=== PATIENT | female | born 1935 | race Caucasian/White ===

== ENCOUNTER 2023-03-22 17:20 | Inpatient (IN) | payer MEDICARE, OTHER, SELFPAY ==
[2023-03-22] VITALS (11 sets, daily range): BP systolic 94–163; BP diastolic 51–85; BMI 26.7; BMI 26.2
[2023-03-22 12:38] LABS: % Basophils 0.4 % (0-2); % Immature Granulocytes 0.6 % (0-0.5); % Lymphocytes 44.3 % (20.5-51.1); % Monocytes 8.7 % (1.7-9.3); Absolute Eosinophils 0.1 10^3/uL (0-0.7); Absolute Immature Granulocytes 0.1 10^3/uL (0-0.05); Absolute Lymphocytes 3.6 10^3/uL (1.2-3.4); Absolute Monocytes 0.7 10^3/uL (0.1-0.6); Absolute Neutrophils 3.6 10^3/uL (1.4-6.5); Hematocrit 38.1 % (37.0-47.0); Hemoglobin 12.6 g/dL (12.0-16.0); Mean Corp Hgb Conc. 33.1 g/dL (33.0-37.0); Mean Corpuscular Hgb 29.7 pg (27.0-31.0); Mean Corpuscular Volume 89.9 fL (81.0-99.0); Mean Platelet Volume 10.8 fL (7.4-10.4); Nucleated Red Blood Cells % 0 %; Platelet Count 252 10^3/uL (130-400); Red Blood Cell Count 4.24 10^6/uL (4.20-5.40); Red Cell Dist. Width 12.9 % (11.5-14.5)
[2023-03-22 12:48] LABS: ALT (SGPT) 12 U/L (0-35); AST (SGOT) 19 U/L (14-36); Albumin 3.8 g/dl (3.5-5.0); Alkaline Phosphatase 121 U/L (38-126); Blood Urea Nitrogen 61 mg/dl (7-17); Calcium 9.9 mg/dl (8.4-10.2); Carbon Dioxide 26 mmol/L (22-30); Chloride 102 mmol/L (98-107); Estimated Creatinine Clearance 15 ml/min; Glucose 87 mg/dl (70-99); Potassium 4.9 mmol/L (3.5-5.1); Sodium 137 mmol/L (135-145); Total Bilirubin 0.7 mg/dl (0.2-1.3); Total Protein 7.2 g/dl (6.3-8.2); eGFR 19.07
--- NOTE | 2023-03-22 12:56 | ED.GENMED ---
History of Present Illness
General
Chief Complaint: Change in Mental Status
Source: patient and family
Exam Limitations: none
Time Seen by Provider: 03/22/23 12:18
Nursing documentation reviewed up to this point in time: agreed with
Travel History
Have you had any contact with someone who has COVID-19?: Unable to Answer
Do you have any symptoms of coronavirus? Fever > 100 degrees, chills, cough, shortness of breath, sore throat, loss of taste or smell, muscle aches, or headache?: Unable to Answer
History of Present Illness
History of Present Illness:
87-year-old female presents the emergency department due to difficulty walking began this morning. She has chronic hip pain. Denies any fall.
Past History
Past History
ED Past Medical History: HTN, Hypothyroidism and Other (Mild dementia, cataracts)
ED Past Surgical History: Other (Vein stripping, cataracts, left knee replacement)
Social History
Tobacco: Non-smoker
Alcohol: None
Drug: None
Personal:
Living: with family
Phy Exam
Physical Exam
Physical Exam:
Physical Exam
General: Confused, afebrile
Neck: supple. no meningeal signs. normal posterior pharynx
Heart: s1/s2 regular rate and rhythm, no murmur. equal radial
pulses.
HEENT: Pupils equal round reactive to light, EOMI
Lungs: no acute respiratory distress. clear bilaterally
Abdomen: normal bowel sounds. not tender. no CVAT
Neuro: alert and oriented to person. no focal neurological deficits cranial nerves II through XII intact
Skin: no rash
Psychiatric: well kept. interactive and cooperative
Extremities: no edema. no calf tenderness. negative homans. good distal pulses
Course
Orders/Labs/Results
Orders:
Orders
03/22/23 12:18
Electrocardiogram (*1) Urgent
Reason for Study: Fatigue / Weakness
03/22/23 12:19
EKG- Treatment ONCE
03/22/23 12:24
CMP [Comprehensive Metabolic Panel] Urgent
Complete Blood Count/With Diff Urgent
Urinalysis Reflex To Culture Urgent
Date Specimen was Collected: 03/22/23
Time Specimen was Collected: 12:19
Urine Microscopic Reflex Cult Urgent
Urine Culture Urgent
MOARLES Source: U
Specimen Description:
Date Specimen was Collected: 03/22/23
Time Specimen was Collected: 12:19
03/22/23 12:56
CT Head W/o Iv Contrast Urgent
Comment:
Reason For Exam: Difficulty walking
Lumbar Spine Complete, 4 View [CR Lumbar Spine Comp Min 4 Vw*] Urgent
Comment:
Reason For Exam: Low back pain
Pelvis, 1 or 2 Views CR [CR Pelvis - 1 Or 2 Views ] Urgent
Comment:
Reason For Exam: Difficulty walking
03/22/23 14:16
CefTRIAXone [Rocephin] 2,000 mg IV NOW STA
03/22/23 14:33
Sterile Water [Sterile Water For Injection] 20 ml .ROUTE .STK-MED ONE
03/22/23 15:17
0.9% Sodium Chloride 500 ml [Nss] 500 ml IV BOLUS
03/22/23 15:18
Acetaminophen [Tylenol] 650 mg PO NOW STA
03/22/23 16:27
COVID-19 Antigen Urgent
Source: Nasal Swab
Influenza A+B Rapid Molecular Urgent
MORALES Source: Nasal Swab
Specimen Description:
Abnormal Lab Results
03/22/23
12:24
MPV 10.8 H fL
(7.4-10.4)
Abs Immat Gran (auto) 0.1 H 10^3/uL
(0-0.05)
Absolute Lymphs (auto) 3.6 H 10^3/uL
(1.2-3.4)
Absolute Monos (auto) 0.7 H 10^3/uL
(0.1-0.6)
Immature Gran % 0.6 H %
(0-0.5)
BUN 61 H mg/dl
(7-17)
Creatinine 2.4 H mg/dL
(0.6-1.0)
Urine Ketones 1+ A
(Negative)
Urine Bilirubin 1+ A
(Negative)
Leukocyte Esterase Rfl 1+ A
(Negative)
Urine WBC (Reflex) 21-25 A /HPF
(0-5)
Urine Bacteria (Reflex) Moderate A
(Negative)
03/22/23 12:24
03/22/23 12:24
Vital Signs
Initial and Last Documented VS:
Initial Vital Signs
BP
101/60
03/22/23 12:11
Last Documented Vital Signs
Temp Pulse Resp BP Pulse Ox
97.3 F 62 13 99/63 93
03/22/23 12:13 03/22/23 15:00 03/22/23 15:00 03/22/23 15:00 03/22/23 15:00
MDM/Problems Addressed
Differential Diagnosis Includes:
CVA, acute renal failure, UTI
MDM/Problems Addressed:
87-year-old female with weakness, acute renal failure, UTI Rocephin given. IV fluids given. Admit to hospitalist
Chronic conditions affecting care: HTN and Other (Dementia)
Acute Exacerbation and/or Progression of Chronic Illness: HTN and Other (Dementia)
*EKG
Interpreted by ED Provider?: Yes
EKG Intrepretation Date: 03/22/23
EKG Intrepretation Time: 12:56
Interpretation: abnormal
Comparison EKG: changes noted
Heart Rate: 63
Rate: normal
Rhythm: sinus
[place]: left axis deviation
Interval: normal interval
QRS Pattern: right bundle branch block
Ischemia: non-specific ST changes
*Barrel Filler Interpretation
Rate: normal
Interpretation: normal
Heart Rate: 60
Rhythm: sinus
*Critical Care Note
Total Time (30-74mins, 75-104mins- exclusive of procedures): Not Applicable
Data Reviewed
Review of Other/Old Records Reveals: Labs
Source: records (Creatinine 1.3 on 03/10/2023)
Patient Management
Social determinants of health affecting care: Strong social support
Discussion with other providers: Hospitalist
Escalation/DeEscalation of care consider admission/obs:
Admit indicated
ED Attending Note
-
Portions of this chart may have been created with voice recognition software.� Occasional wrong word or��sound alike� substitutions may have occurred due to the inherent limitations of voice recognition software.
Discharge Plan
Departure
Patient Disposition: Admit
Date of Disposition: 03/22/23
Time of Disposition: 15:16
Admit to: Telemetry
Presentation/result/management discussed w/ accepting MD/DO: Hospitalist
Patient with high blood pressure during this ER visit?: No
Condition: Good
Discharge Problem:
Urinary tract infection, Acute renal failure
Prescriptions:
No Action
lisinopril 10 MG tablet
10 mg PO HS
donepezil 10 mg Tablet
10 mg PO DAILY@2099
furosemide 40 mg Tablet
40 mg PO DAILY
acetaminophen [Tylenol] 325 mg Tablet
650 mg PO Q6H MDD 3000 mg PRN (Reason: mild pain/fever>101)
acetaminophen [Tylenol Extra Strength] 500 mg Tablet
500 mg PO DAILY
levothyroxine 50 mcg Tablet
50 mcg PO DAILY@2099
loteprednol etabonate [Lotemax] 0.5 % Drops,Suspension
1 drp BOTH EYES BID@899,2099
carboxymethylcellulose sodium [Refresh Plus] 0.5 % Dropperette
1 drp BOTH EYES QID@899,,17,21
cholecalciferol (vitamin D3) 25 mcg (1,000 unit) Tablet
50 mcg PO DAILY@00
PreserVision AREDS-2 250-90-40-1 mg Capsule
1 cap PO BID@899,2099
Osteo Bi-Flex
2 tab PO DAILY@899
diclofenac sodium 1 % gel
1 applic topical QIDPRN PRN (Reason: osteoarthritis)
Referrals:
Supa Donald MD [Family Provider] -
Interventions
Interventions:
*Risk Screen - Suicide Last Done: 03/22/23 12:10
*Neglect/Abuse Screening Last Done: 03/22/23 12:10
ED- Fall Risk Assessment Last Done: 03/22/23 12:20
*ED COVID-19 Vaccine History Last Done: 03/22/23 12:20
ED- Neurological Assessment Last Done: 03/22/23 12:20
ED- Cardiac Assessment Last Done: 03/22/23 12:20
[2023-03-22 13:15] LABS: Urine Albumin Trace (Neg - Trace); Urine Bilirubin 1+ (Negative); Urine Character Clear (Clear); Urine Color Yellow; Urine Glucose Negative (Negative); Urine Ketone 1+ (Negative); Urine Leukocyte 1+ (Negative); Urine Nitrite Negative (Negative); Urine Occult Blood Negative (Negative); Urine Urobilinogen 1+ (Neg - 1+)
[2023-03-22 13:39] LABS: Urine Bacteria Moderate (Negative); Urine Red Blood Cell 0-2 /HPF (0-2); Urine White Cell 21-25 /HPF (0-5)
[2023-03-22] MEDS: ROCEPHIN 2000 MG IV (14:38)
[2023-03-22] MEDS: NSS 500 IV (15:20)
[2023-03-22] MEDS: TYLENOL 650 MG PO ×3 (15:23→22:46)
--- NOTE | 2023-03-22 16:23 | HPS.HSE ---
Addendum entered and electronically signed by Ave Rene MD 03/23/23 07:56:
I saw and examined the patient.
The DISABILITY BENEFITS SPECIALIST or PA's note was reviewed and I agree with the note.
Comment: 87 y/o F hx of HTN, hypothyroidism, CKD 4, dementia presenting to ER with ambulatory dysfunction and chronic hip pain. She denies any other complaints. In ER, patient was found to have acute UTI And STEFFANIE. started on IVF and IV Abx and
admitted to the hospital.
GENERAL: The patient appeared to be in no distress. Mood and affect was pleasant. Saturation was poor.
HEENT: Pupils equal, round, reactive to light. Extraocular movements were intact. Sclerae anicteric. Ears and nose were intact. Hearing was normal. Oropharynx was clear, but dry. Neck was supple. Trachea without
thyromegaly.
HEART: Regular without rubs.
EXTREMITIES: Lower extremities were with 1+ edema.
LUNGS:� Clear to auscultation bilaterally with normal excursion.�
ABDOMEN:� Soft, nontender, with normoactive bowel sounds. No hepatomegaly.
SKIN: Without rash and normal turgor.
Assessment:
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
- hold nephrotoxins
- bladder scans/SC protocol
- IVF as patient appears dry
- renal following
UTI
- continue empiric Rocephin, pending cultures
- CT without obstructive uropathy
Essential HTN
- hold IVELISSE/Lasix
- prn Hydralazine
hypothyroidism - continue replacement. TSH 3.24
dementia unknown subtype
- continue Donepezil
DVT ppx: SC Heparin
Code:
Original Note:
Family Physician
-
Family Physician: Supa Donald MD
Chief Complaint
-
Weakness, difficulty walking
History of Present Illness
87-year-old female complaining of difficulty walking starting this morning along with chronic hip pain she denies any recent fall, fever, chills, chest pain, shortness of breath, cough, abdominal pain, nausea, vomiting, diarrhea, urinary symptoms.
Her daughters are at bedside and states she has been sick since 03/04/2023 complaining of left-sided back pain with increased confusion on and off from her baseline dementia. The patient is oriented to name and daughters at bedside she does complain
of left flank pain on palpation. She denies fever, chills, chest pain, shortness breath, cough, abdominal pain, nausea, vomiting, diarrhea, urinary symptoms. She has past medical history of hypertension, hypothyroidism, dementia, RBBB,
hypothyroidism, macular degeneration, falls, DJD, CKD 3B�4.
Medical History
Past Medical History
Past Medical History: Reports Other
Additional Past Medical History:
hypertension
hypothyroidism
CKD 3B�4
dementia advanced
Chronic urinary incontinence
RBBB
hypothyroidism
macular degeneration
falls
DJD
Chronic ambulatory dysfunction uses wheelchair and walker with max assist to bathroom
Past Surgical History: Reports Other
Additional Past Surgical History:
Hx left distal radius ORIF 2015
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
Social History
Tobacco: Non-smoker
Alcohol: None
Drug: None
Personal: Single
Living: Longterm ([facility])
Employment: Retired
Family History
Family History: Other (Mother history of macular degeneration, in hospital unsure, father gastric cancer, sister living with dementia)
Allergies / Home Medications
Allergies reflects when Allergies were last updated in [employer].
Home Medications with original date entered in [employer]
Allergy/Medication List:
Allergies
Allergy/AdvReac Type Severity Reaction Status Date / Time
adhesive Allergy Rash, Verified 01/11/22 13:26
itching,
redness
atorvastatin calcium AdvReac Myalgias Verified 01/11/22 13:26
[From Lipitor]
Home Medications
lisinopril 10 mg tablet 10 mg PO HS Blood Pressure 11/01/13
donepezil 10 mg tablet 10 mg PO DAILY@2099 Neurological Condition 12/28/21
Osteo Bi-Flex 2 tab PO DAILY@0900 Supplement 03/22/23
acetaminophen 325 mg tablet (Tylenol) 650 mg PO Q6H PRN mild pain/fever>101 03/22/23
acetaminophen 500 mg tablet (Tylenol Extra Strength) 500 mg PO DAILY Pain 03/22/23
carboxymethylcellulose sodium 0.5 % eye drops in a dropperette (Refresh Plus) 1 drp BOTH EYES QID@0900,13,17,21 Eye Condition 03/22/23
cholecalciferol (vitamin D3) 25 mcg (1,000 unit) tablet 50 mcg PO DAILY@0900 Supplement 03/22/23
diclofenac sodium 1 applic topical QIDPRN PRN osteoarthritis 03/22/23
furosemide 40 mg tablet 40 mg PO DAILY Fluid Retention/Swelling 03/22/23
levothyroxine 50 mcg tablet 50 mcg PO DAILY@2099 Thyroid 03/22/23
loteprednol etabonate 0.5 % eye drops,suspension (Lotemax) 1 drp BOTH EYES BID@899,2099 Eye Condition 03/22/23
vit C 250 mg-vit E 90 mg-zinc 40 mg-copper 1 [id number] capsule (PreserVision AREDS-2) 1 cap PO BID@899,2099 Supplement 03/22/23
Review of Systems
-
History Source: Patient
A 12 point ROS was completed and negative except as noted: Yes
Constitutional: Reports Fatigue; Denies Fever or Chills
EENT: Denies Sore Throat or Runny Nose
Respiratory: Denies Cough or Trouble Breathing
Cardiac: Denies Chest Pain, Diaphoresis or Palpitations
Abdomen/GI: Denies Abdominal Pain, Nausea, Vomiting, Diarrhea, Constipated or Bloody Stools
: Reports Flank Pain (Left) and Incontinence (Chronic); Denies Dysuria, Frequency or Difficulty Voiding
Musculoskeletal: Denies Joint Pain or Edema
Skin: Denies Itching or Rash
Neurological: Reports Weakness; Denies Dizzy or Headache
Endocrine: Reports No Symptoms
Hematologic/Lymphatic: Reports No Symptoms
Psych: Reports Calm
Physical Exam
Vital Signs
Vital Signs
Temp Pulse Resp BP Pulse Ox
97.3 F 62 13 99/63 93
03/22/23 12:13 03/22/23 15:00 03/22/23 15:00 03/22/23 15:00 03/22/23 15:00
Physical Exam
General: Comfortable, Conversant and Pain; No Fever
Laboratory Results
-
03/22/23 12:24
03/22/23 12:24
Laboratory Results
Total Bilirubin 0.7 mg/dl (0.2-1.3) 03/22/23 12:24
AST 19 U/L (14-36) 03/22/23 12:24
ALT 12 U/L (0-35) 03/22/23 12:24
Alkaline Phosphatase 121 U/L (38-126) 03/22/23 12:24
Impression/Plan
-
Impression/plan:
Admit to MedSurg
#UTI-symptomatic with weakness
Moderate bacteria, WBC 21-25, positive leukocytes
-Follow urine culture
-Blood cultures x2
- check covid and flu
-IV Rocephin
-Iv NSS
-PT/OT/case management eval
CT head: No acute intracranial abnormality
#STEFFANIE on CKD 3B/4 likely secondary to volume depletion/medication use
Creat 2.4 was 1.3 on 03/10/2023
-Ct abd/pelvis noncontrast
-Hold Lasix and lisinopril
-Consult Nephro
#Hypotension likely secondary to volume depletion/Hx HTN
-
-Hold Lasix 40 mg daily, lisinopril 10 mg Hx
Follows with [facility] cardiology
2D echo 01/06/2022: EF 55-60%, normal LVS LVSF, no wall abnormalities, mild AR
#Advanced dementia
Follows with Dr. Weinstein neurology
-Continue donepezil 10 mg daily
#Hypothyroidism
-Check TSH with free T4 reflex
-Continue levothyroxine 50 mcg daily
#Chronic ambulatory dysfunction with falls
#DJD/OA
-Continue Tylenol, diclofenac 4 times daily as needed knees, vitamin D3
-Fall precautions
#Macular degeneration
-Continue eyedrops
DVT prophylaxis
Subcu heparin
DNR per daughters at bedside
[2023-03-22 17:21] LABS: COVID-19 Antigen Negative (Negative)
--- NOTE | 2023-03-22 17:23 | CON.MD ---
Consultation - Medical
-
Assessment
-STEFFANIE
-right flank pain
-dementia
-HTN now hypotension
-hypothyroid
Plan
-appears volume depleted (hypotense, concentrated TP/Alb and Hgb vs previous)
-I suspect her intake has worsened in the last two weeks
-for CT A/P, no IV contrast
-follow BMP
-bolus NSS again
-IVF isotonic
-check FENa
-no more lisinopril
-check TSH
-d/w daughters
-[id number]
[2023-03-22] MEDS: NSS 1000 IV ×2 (17:46→18:40)
[2023-03-22 19:34] LABS: TSH 3.24 uIU/ml (0.47-4.68)
--- NOTE | 2023-03-22 19:42 | PTCARENOTE ---
Pt received from ED to [facility]-2. Pt oriented to room and call montaño.
[2023-03-22 19:56] LABS: Urine Sodium 24 mmol/L (30-90)
[2023-03-22] MEDS: SYNTHROID 50 MCG PO (20:44)
[2023-03-22] MEDS: ARICEPT 10 MG PO (20:44)
[2023-03-22] MEDS: HEPARIN 5000 UNITS SC (20:45)
[2023-03-22] MEDS: REFRESH CELLUVISC GEL 1 DROPS BOTH EYES (22:46)
[2023-03-23] MEDS: TYLENOL PO ×3 (04:33→23:19)
[2023-03-23] MEDS: NSS 1000 IV ×2 (06:14→16:42)
[2023-03-23 07:22] LABS: % Basophils 0.6 % (0-2); % Eosinophils 1.6 % (0-6); % Immature Granulocytes 0.4 % (0-0.5); % Lymphocytes 44.7 % (20.5-51.1); % Monocytes 10.4 % (1.7-9.3); % Neutrophils 42.3 % (42.2-75.2); Absolute Eosinophils 0.1 10^3/uL (0-0.7); Absolute Lymphocytes 2.3 10^3/uL (1.2-3.4); Absolute Monocytes 0.5 10^3/uL (0.1-0.6); Absolute Neutrophils 2.2 10^3/uL (1.4-6.5); Hematocrit 31.3 % (37.0-47.0); Hemoglobin 10.5 g/dL (12.0-16.0); Mean Corp Hgb Conc. 33.5 g/dL (33.0-37.0); Mean Corpuscular Hgb 30.6 pg (27.0-31.0); Mean Corpuscular Volume 91.3 fL (81.0-99.0); Mean Platelet Volume 11.1 fL (7.4-10.4); Nucleated Red Blood Cells % 0 %; Platelet Count 186 10^3/uL (130-400); Red Blood Cell Count 3.43 10^6/uL (4.20-5.40); Red Cell Dist. Width 12.8 % (11.5-14.5); White Blood Cell Count 5.1 10^3/uL (4.8-10.8)
[2023-03-23 07:30] VITALS: BP 99/73
[2023-03-23] MEDS: TYLENOL 650 MG PO ×3 (07:54→19:54)
[2023-03-23 07:56] LABS: ALT (SGPT) < 10 U/L (0-35); AST (SGOT) 16 U/L (14-36); Albumin 2.7 g/dl (3.5-5.0); Alkaline Phosphatase 81 U/L (38-126); Blood Urea Nitrogen 53 mg/dl (7-17); Calcium 9.3 mg/dl (8.4-10.2); Carbon Dioxide 20 mmol/L (22-30); Chloride 105 mmol/L (98-107); Estimated Creatinine Clearance 27 ml/min; Glucose 72 mg/dl (70-99); Potassium 4.4 mmol/L (3.5-5.1); Sodium 138 mmol/L (135-145); Total Bilirubin 0.6 mg/dl (0.2-1.3); Total Protein 5.6 g/dl (6.3-8.2); eGFR 36.41
[2023-03-23] MEDS: REFRESH CELLUVISC GEL 1 DROPS BOTH EYES ×4 (07:57→20:00)
[2023-03-23] MEDS: VITAMIN D3 (cholecalciferol) 50 MCG PO (08:01)
[2023-03-23] MEDS: HEPARIN 5000 UNITS SC ×2 (08:06→19:53)
--- NOTE | 2023-03-23 10:18 | W.PN.HOSP.TC ---
Today's Communication/Plan
-
see outlined plan
Assessment / Plan
Assessment / Plan
Assessment:
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
- hold nephrotoxins
- bladder scans/SC protocol
- IVF as patient appears dry
- renal following
- Cr 1.4
UTI
- continue empiric Rocephin, pending cultures
- CT without obstructive uropathy
Essential HTN
- stop Lisinopril permanently
- holding Lasix
- prn Hydralazine
hypothyroidism - continue replacement. TSH 3.24
dementia unknown subtype
- continue Donepezil
DVT ppx: SC Heparin
Code: DNR per chart
Anticipated Discharge: 24 - 48 hours
Subjective/Interval History
-
Date of Service: March 23, 2023
no complaints presently
Cr improved to 1.4
Objective Data
-
Labs:
Laboratory Results
03/23/23
07:00
WBC 5.1
Hgb 10.5 L
Hct 31.3 L
Plt Count 186 D
Sodium 138
Potassium 4.4
Chloride 105
Carbon Dioxide 20 L
BUN 53 H
Creatinine 1.4 H
Glucose 72
Calcium 9.3
Total Bilirubin 0.6
AST 16
ALT < 10
Alkaline Phosphatase 81
Vital Signs:
Vital Signs
Temp Pulse Resp BP Pulse Ox
97.7 F 72 18 99/73 99
03/23/23 07:30 03/23/23 07:30 03/23/23 07:30 03/23/23 07:30 03/23/23 08:00
I&O
03/22/23 03/23/23 03/24/23
06:59 06:59 06:59
Intake Total 1020 / 1020
Output Total 300 / 300
Balance 720 / 720
Physical Exam
-
General: No Apparent Distress
HEENT: Normocephalic and Atraumatic
Respiratory: Negative Wheezes or Rales
Cardiac: Regular Rhythm and S1/S2
GI: Soft
Genito-urinary: No Costovertebral Tender
Musculoskeletal: No Edema
Neuro: AO x 3
Hematologic / Lymphatic: No Lymphadenopathy
Psych: Calm
Data Reviewed
-
Total Time Spent with Patient (in minutes): 45
Labs: Labs Reviewed by me
[2023-03-23 10:38] VITALS: BP 116/69; BP 135/79; PULSE 84; O2SAT 94
[2023-03-23 10:50] VITALS: BP 116/69; PULSE 85; O2SAT 94
[2023-03-23] MEDS: ROCEPHIN 1000 MG IV (13:40)
[2023-03-23] MEDS: STERILE WATER FOR INJECTION 10 ML IV (13:40)
--- NOTE | 2023-03-23 16:06 | CM ---
prep manager reviewed patient's chart and met with patient and patient was admitted from 5th floor at [facility]. Patient requires assist with adl's and was using a walker and w/c to meals however lately per Celeste at [facility],
patient has been using the w/c, physical therapy are recommending skilled and rehabilitation caseworker reached out to daughter who stated that she will think about skilled placement.
Plan; Possible skilled placement at [facility] if daughter agrees.
[2023-03-23 16:15] VITALS: BP 118/69
--- NOTE | 2023-03-23 16:27 | W.PN.NEPH.PH ---
Today's Communication / Plan
-
cont IVF
labs in am
Assessment/Plan
-
Assessment
-STEFFANIE
-right flank pain
-dementia
-HTN now hypotension
-hypothyroid
Plan
STEFFANIE prerenal improving with IVF, cr at 1.4
UA with UTI, cx GN, U na low , CT no hydro
cont IVF till po intake is better
TSH is normal
BP better-no more lisinopril
hold lasix
monitor met acidosis
labs in am
-
-
Date of Service: March 23, 2023
CC / HPI / ROS
-
Chief Complaint:
STEFFANIE
History of Present Illness:
cr better at 1.4
BP improving
no fever
Review of Systems:
no cp or sob
confused baseline?
Labs
-
Labs:
WBC 5.1 10^3/uL (4.8-10.8) 03/23/23 07:00
RBC 3.43 10^6/uL (4.20-5.40) L 03/23/23 07:00
Hgb 10.5 g/dL (12.0-16.0) L 03/23/23 07:00
Hct 31.3 % (37.0-47.0) L 03/23/23 07:00
Plt Count 186 10^3/uL (130-400) D 03/23/23 07:00
Sodium 138 mmol/L (135-145) 03/23/23 07:00
Potassium 4.4 mmol/L (3.5-5.1) 03/23/23 07:00
Chloride 105 mmol/L (98-107) 03/23/23 07:00
Carbon Dioxide 20 mmol/L (22-30) L 03/23/23 07:00
BUN 53 mg/dl (7-17) H 03/23/23 07:00
Creatinine 1.4 mg/dL (0.6-1.0) H 03/23/23 07:00
eGFR 36.41 03/23/23 07:00
Glucose 72 mg/dl (70-99) 03/23/23 07:00
Calcium 9.3 mg/dl (8.4-10.2) 03/23/23 07:00
Albumin 2.7 g/dl (3.5-5.0) L 03/23/23 07:00
Physical Exam
-
Vital Signs:
Vital Signs
Temp Pulse Resp BP Pulse Ox
97.4 F 78 18 118/69 98
03/23/23 16:15 03/23/23 16:15 03/23/23 16:15 03/23/23 16:15 03/23/23 16:15
Cardiovascular:: Regular rate and rhythm
Respiratory:: Bilateral: CTA
Lung Excursion:: Normal
Abdomen:: Nontender and Soft
Extremity Edema:: None: Bilateral:
Govea Catheter: No
[2023-03-23] MEDS: ARICEPT 10 MG PO (20:00)
[2023-03-23] MEDS: SYNTHROID 50 MCG PO (20:57)
[2023-03-23 23:17] VITALS: BP 151/75
[2023-03-24] MEDS: TYLENOL PO ×2 (04:51→23:39)
[2023-03-24] MEDS: NSS 1000 IV (06:05)
[2023-03-24 07:30] VITALS: BP 136/77
[2023-03-24 07:58] LABS: % Basophils 0.2 % (0-2); % Eosinophils 0.8 % (0-6); % Immature Granulocytes 0.6 % (0-0.5); % Lymphocytes 39.8 % (20.5-51.1); % Monocytes 7.7 % (1.7-9.3); % Neutrophils 50.9 % (42.2-75.2); Absolute Lymphocytes 1.9 10^3/uL (1.2-3.4); Absolute Monocytes 0.4 10^3/uL (0.1-0.6); Absolute Neutrophils 2.5 10^3/uL (1.4-6.5); Hematocrit 31.8 % (37.0-47.0); Hemoglobin 10.6 g/dL (12.0-16.0); Mean Corp Hgb Conc. 33.3 g/dL (33.0-37.0); Mean Corpuscular Hgb 30.1 pg (27.0-31.0); Mean Corpuscular Volume 90.3 fL (81.0-99.0); Nucleated Red Blood Cells % 0 %; Platelet Count 172 10^3/uL (130-400); Red Blood Cell Count 3.52 10^6/uL (4.20-5.40); Red Cell Dist. Width 12.6 % (11.5-14.5); White Blood Cell Count 4.8 10^3/uL (4.8-10.8)
[2023-03-24] MEDS: REFRESH CELLUVISC GEL 1 DROPS BOTH EYES ×4 (07:58→19:36)
[2023-03-24] MEDS: VITAMIN D3 (cholecalciferol) 50 MCG PO (07:58)
[2023-03-24] MEDS: TYLENOL 650 MG PO ×4 (08:01→19:36)
[2023-03-24] MEDS: HEPARIN 5000 UNITS SC ×2 (08:02→19:36)
[2023-03-24 08:32] LABS: ALT (SGPT) < 10 U/L (0-35); AST (SGOT) 18 U/L (14-36); Albumin 3.1 g/dl (3.5-5.0); Alkaline Phosphatase 98 U/L (38-126); Blood Urea Nitrogen 33 mg/dl (7-17); Calcium 9.2 mg/dl (8.4-10.2); Carbon Dioxide 22 mmol/L (22-30); Chloride 108 mmol/L (98-107); Estimated Creatinine Clearance 34 ml/min; Glucose 70 mg/dl (70-99); Sodium 137 mmol/L (135-145); Total Bilirubin 0.5 mg/dl (0.2-1.3); Total Protein 6.1 g/dl (6.3-8.2); eGFR 48.63
[2023-03-24 08:54] LABS: Potassium 4.3 mmol/L (3.5-5.1)
--- NOTE | 2023-03-24 09:52 | CM ---
Addendum entered by Azalia Barry 03/24/23 16:57:
IMM explained to daughter, Kendra Whiting, via the phone
stated that she understood benefit; form dated and timed
Addendum entered by Azalia Barry 03/24/23 15:34:
Plan: Discharge to SNF @ [facility] tomorrow via ambulance transport
CM will call Celeste García at [facility] to confirm time they can have bed ready
Spoke with patient's daughter Kendra; she is agreeable with plan
Addendum entered by Azalia Barry 03/24/23 10:02:
SNF referral sent to [facility]; notified Celeste Jeffery via [employer]
Original Note:
Spoke with patient's daughter, Kendra, via phone; she is agreeable to [facility] @ [facility]. Will submit referral via [employer]
--- NOTE | 2023-03-24 10:35 | W.PN.HOSP.TC ---
Today's Communication/Plan
-
continue Abx
dc planning to SNF
place compression stockings
Assessment / Plan
Assessment / Plan
Assessment:
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
- hold nephrotoxins
- bladder scans/SC protocol
- IVF per Nephrology
- Cr 1.1
pansensitive. E. Coli UTI
- continue Rocephin, day 3/
- CT without obstructive uropathy
Essential HTN
- stop Lisinopril permanently
- holding Lasix; consider reduction to 20mg daily (or prn) for hx of LE edema, use compression stockings.
- prn Hydralazine
hypothyroidism - continue replacement. TSH 3.24
dementia unknown subtype
- continue Donepezil
DVT ppx: SC Heparin
Code: DNR per chart
Anticipated Discharge: Within 24 hours
Subjective/Interval History
-
Date of Service: March 24, 2023
continues to improve
no complaints
Objective Data
-
Labs:
Laboratory Results
03/24/23
06:37
WBC 4.8
Hgb 10.6 L
Hct 31.8 L
Plt Count 172
Sodium 137
Potassium 4.3
Chloride 108 H
Carbon Dioxide 22
BUN 33 H
Creatinine 1.1 H
Glucose 70
Calcium 9.2
Total Bilirubin 0.5
AST 18
ALT < 10
Alkaline Phosphatase 98
Vital Signs:
Vital Signs
Temp Pulse Resp BP Pulse Ox
97.4 F 83 18 136/77 97
03/24/23 07:30 03/24/23 07:30 03/24/23 07:30 03/24/23 07:30 03/24/23 07:30
I&O
03/23/23 03/24/23 03/25/23
06:59 06:59 06:59
Intake Total 1020 / 1020 600 / 600
Output Total 300 / 300 450 / 450
Balance 720 / 720 150 / 150
Physical Exam
-
General: No Apparent Distress
HEENT: Normocephalic and Atraumatic
Respiratory: Negative Wheezes or Rales
Cardiac: Regular Rhythm and S1/S2
GI: Soft
Genito-urinary: No Costovertebral Tender
Musculoskeletal: No Edema
Neuro: AO x 3
Hematologic / Lymphatic: No Lymphadenopathy
Psych: Calm
Data Reviewed
-
Total Time Spent with Patient (in minutes): 45
Labs: Labs Reviewed by me
[2023-03-24] MEDS: STERILE WATER FOR INJECTION 10 ML IV (14:15)
[2023-03-24] MEDS: ROCEPHIN 1000 MG IV (14:15)
[2023-03-24 15:57] VITALS: BP 130/70
--- NOTE | 2023-03-24 16:23 | W.PN.NEPH.PH ---
Today's Communication / Plan
-
d/c IVF
Assessment/Plan
-
Assessment
-STEFFANIE
-right flank pain
-dementia
-HTN now hypotension
-hypothyroid
Plan
STEFFANIE prerenal improving with IVF, cr at 1.1
UA with UTI, U na low , CT no hydro
can stop IVF, encourage po intake
TSH is normal
BP better-no more lisinopril at d/c
if need antiHTN use low dose Amlodipine
hold lasix
improving met acidosis
BMP 1week with PCP
will s/o, call with ?s
-
-
Date of Service: March 24, 2023
CC / HPI / ROS
-
Chief Complaint:
STEFFANIE
History of Present Illness:
cr better at 1.1
BP stable
no fever
Review of Systems:
no cp or sob
confused baseline?
Labs
-
Labs:
WBC 4.8 10^3/uL (4.8-10.8) 03/24/23 06:37
RBC 3.52 10^6/uL (4.20-5.40) L 03/24/23 06:37
Hgb 10.6 g/dL (12.0-16.0) L 03/24/23 06:37
Hct 31.8 % (37.0-47.0) L 03/24/23 06:37
Plt Count 172 10^3/uL (130-400) 03/24/23 06:37
Sodium 137 mmol/L (135-145) 03/24/23 06:37
Potassium 4.3 mmol/L (3.5-5.1) 03/24/23 06:37
Chloride 108 mmol/L (98-107) H 03/24/23 06:37
Carbon Dioxide 22 mmol/L (22-30) 03/24/23 06:37
BUN 33 mg/dl (7-17) H 03/24/23 06:37
Creatinine 1.1 mg/dL (0.6-1.0) H 03/24/23 06:37
eGFR 48.63 03/24/23 06:37
Glucose 70 mg/dl (70-99) 03/24/23 06:37
Calcium 9.2 mg/dl (8.4-10.2) 03/24/23 06:37
Albumin 3.1 g/dl (3.5-5.0) L 03/24/23 06:37
Physical Exam
-
Vital Signs:
Vital Signs
Temp Pulse Resp BP Pulse Ox
97.5 F 80 20 130/70 96
03/24/23 15:57 03/24/23 15:57 03/24/23 15:57 03/24/23 15:57 03/24/23 15:57
Cardiovascular:: Regular rate and rhythm
Respiratory:: Bilateral: CTA
Lung Excursion:: Normal
Abdomen:: Nontender and Soft
Extremity Edema:: None: Bilateral:
Govea Catheter: No
[2023-03-24] MEDS: ARICEPT 10 MG PO (19:36)
[2023-03-24] MEDS: SYNTHROID 50 MCG PO (19:37)
[2023-03-24 23:47] VITALS: BP 135/61
[2023-03-25] MEDS: TYLENOL PO (04:52)
[2023-03-25 07:30] VITALS: BP 131/49
[2023-03-25] MEDS: TYLENOL 650 MG PO ×2 (07:43→11:35)
[2023-03-25] MEDS: REFRESH CELLUVISC GEL 1 DROPS BOTH EYES ×2 (07:44→11:36)
[2023-03-25] MEDS: VITAMIN D3 (cholecalciferol) 50 MCG PO (07:44)
[2023-03-25] MEDS: HEPARIN 5000 UNITS SC (07:45)
[2023-03-25 09:03] LABS: % Basophils 0.5 % (0-2); % Eosinophils 1.9 % (0-6); % Immature Granulocytes 0.2 % (0-0.5); % Lymphocytes 44.5 % (20.5-51.1); % Monocytes 9.5 % (1.7-9.3); % Neutrophils 43.4 % (42.2-75.2); Absolute Eosinophils 0.1 10^3/uL (0-0.7); Absolute Lymphocytes 1.8 10^3/uL (1.2-3.4); Absolute Monocytes 0.4 10^3/uL (0.1-0.6); Absolute Neutrophils 1.8 10^3/uL (1.4-6.5); Hematocrit 31.2 % (37.0-47.0); Hemoglobin 10.3 g/dL (12.0-16.0); Mean Corpuscular Hgb 30.3 pg (27.0-31.0); Mean Corpuscular Volume 91.8 fL (81.0-99.0); Mean Platelet Volume 11.1 fL (7.4-10.4); Nucleated Red Blood Cells % 0 %; Platelet Count 154 10^3/uL (130-400); Red Cell Dist. Width 12.7 % (11.5-14.5); White Blood Cell Count 4.1 10^3/uL (4.8-10.8)
--- NOTE | 2023-03-25 09:28 | W.PN.HOSP.TC ---
Today's Communication/Plan
-
dc SNF
Assessment / Plan
Assessment / Plan
Assessment:
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
- bladder scans/SC protocol
- Cr 0.9 after IVF
pansensitive. E. Coli UTI
- continue Rocephin, day 4/5
- CT without obstructive uropathy
Essential HTN
- stop Lisinopril permanently
- holding Lasix; consider reduction to 20mg daily prn for hx of LE edema, use compression stockings.
- prn Hydralazine
hypothyroidism - continue replacement. TSH 3.24
dementia unknown subtype
- continue Donepezil
DVT ppx: SC Heparin
Code: DNR per chart
More than 30 minutes spent in discharge including
Final examination of the patient
Summarizing hospital stay
Instructions for continuing care to all relevant caregivers
Preparation of discharge records, prescriptions, and referral forms
Total time spent (in minutes): 45
Anticipated Discharge: Today
Subjective/Interval History
-
Date of Service: March 25, 2023
denies any new complaints
Objective Data
-
Labs:
Laboratory Results
03/25/23
08:31
WBC 4.1 L
Hgb 10.3 L
Hct 31.2 L
Plt Count 154
Sodium Pending
Potassium Pending
Chloride Pending
Carbon Dioxide Pending
BUN Pending
Creatinine Pending
Glucose Pending
Calcium Pending
Total Bilirubin Pending
AST Pending
ALT Pending
Alkaline Phosphatase Pending
Vital Signs:
Vital Signs
Temp Pulse Resp BP Pulse Ox
98.0 F 71 18 131/49 97
03/25/23 07:30 03/25/23 07:30 03/25/23 07:30 03/25/23 07:30 03/25/23 07:30
I&O
03/24/23 03/25/23 03/26/23
06:59 06:59 06:59
Intake Total 600 / 600 960 / 960
Output Total 450 / 450 950 / 950
Balance 150 / 150 10 / 10
Physical Exam
-
General: No Apparent Distress
HEENT: Normocephalic and Atraumatic
Respiratory: Negative Wheezes
Cardiac: Regular Rhythm and S1/S2
GI: Soft
Genito-urinary: No Costovertebral Tender
Neuro: AO x 3
Psych: Calm
Data Reviewed
-
Total Time Spent with Patient (in minutes): 45
Labs: Labs Reviewed by me
[2023-03-25 09:30] LABS: ALT (SGPT) < 10 U/L (0-35); AST (SGOT) 18 U/L (14-36); Albumin 2.9 g/dl (3.5-5.0); Alkaline Phosphatase 92 U/L (38-126); Blood Urea Nitrogen 21 mg/dl (7-17); Calcium 9.3 mg/dl (8.4-10.2); Carbon Dioxide 26 mmol/L (22-30); Chloride 109 mmol/L (98-107); Estimated Creatinine Clearance 41 ml/min; Glucose 78 mg/dl (70-99); Potassium 4.3 mmol/L (3.5-5.1); Sodium 138 mmol/L (135-145); Total Bilirubin 0.5 mg/dl (0.2-1.3); Total Protein 5.8 g/dl (6.3-8.2); eGFR > 60.00
--- NOTE | 2023-03-25 09:48 | W.DS.TRANS ---
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
-
Discharge Instructions:
Discharge Diagnosis/Procedures UTI, STEFFANIE
Diet Regular
Activity As tolerated
Bathing Restrictions None
Blood Work repeat BMP in 1 week
Other Services PT,OT
Instructions:
Stand-Alone Forms:
Changes to Home Medications: Yes
Discharge Medications:
DC Medications w/original date entered in [employer]
donepezil 10 mg tablet 10 mg PO DAILY@2099 Neurological Condition 12/28/21
Osteo Bi-Flex 2 tab PO DAILY@0900 Supplement 03/22/23
acetaminophen 325 mg tablet (Tylenol) 650 mg PO Q6H PRN mild pain/fever>101 03/22/23
acetaminophen 500 mg tablet (Tylenol Extra Strength) 500 mg PO DAILY Pain 03/22/23
carboxymethylcellulose sodium 0.5 % eye drops in a dropperette (Refresh Plus) 1 drp BOTH EYES QID@0900,13,17,21 Eye Condition 03/22/23
cholecalciferol (vitamin D3) 25 mcg (1,000 unit) tablet 50 mcg PO DAILY@0900 Supplement 03/22/23
diclofenac sodium 1 applic topical QIDPRN PRN osteoarthritis 03/22/23
levothyroxine 50 mcg tablet 50 mcg PO DAILY@2099 Thyroid 03/22/23
loteprednol etabonate 0.5 % eye drops,suspension (Lotemax) 1 drp BOTH EYES BID@899,2099 Eye Condition 03/22/23
vit C 250 mg-vit E 90 mg-zinc 40 mg-copper 1 [id number] capsule (PreserVision AREDS-2) 1 cap PO BID@0900,2100 Supplement 03/22/23
cephalexin 500 mg capsule 500 mg PO BID #2 caps 03/25/23
furosemide 20 mg tablet (Lasix) 20 mg PO DAILY PRN edema #30 tabs 03/25/23
Home Medication Changes
Lasix to prn
IVELISSE stopped
Pending Results: No
Total time spent discharging patient (in min): 42
--- NOTE | 2023-03-25 10:40 | CM ---
Patient has been accepted at [facility] 2nd floor private room. Needs ambulance transport.
[facility]
Report [phone]
[2023-03-25] MEDS: STERILE WATER FOR INJECTION 10 ML IV (11:33)
[2023-03-25] MEDS: ROCEPHIN 1000 MG IV (11:35)
== END 2023-03-25 13:50 | DRG 683 ==
LOC: 4 WEST ACU 17:20
PROVIDERS: Clinical Nurse Specialist Family Health; ADMITTING PHYSICIAN Internal Medicine; CONSULT PHYSICIAN Specialist; EMERGENCY PHYSICIAN Emergency Medicine; FAMILY PHYSICIAN Family Medicine
DX: N17.9 Acute kidney failure, unspecified (principal); E87.20 Acidosis, unspecified; N39.0 Urinary tract infection, site not specified; N18.4 Chronic kidney disease, stage 4 (severe); Z11.52 Encounter for screening for COVID-19; E03.9 Hypothyroidism, unspecified; I95.9 Hypotension, unspecified; H35.30 Unspecified macular degeneration; Z66 Do not resuscitate; I12.9 Hypertensive chronic kidney disease with stage 1 through stage 4 chronic kidney disease, or unspecified chronic kidney disease; F03.A0 Unspecified dementia, mild, without behavioral disturbance, psychotic disturbance, mood disturbance, and anxiety; B96.20 Unspecified Escherichia coli [E. coli] as the cause of diseases classified elsewhere
CPT/HCPCS: 51701; 70450; 72110; 72170; 74176; 80053; 81003; 81015; 82570; 84300; 84443; 85025; 87040; 87070; 87077; 87086; 87186; 87502; 87811; 93005; 96361; 96374; 97163; 97166; 97530; 99285

== ENCOUNTER → 2023-04-01 13:31 | Outpatient (REF) | payer MEDICARE, OTHER, SELFPAY ==
[2023-04-01 15:25] LABS: Blood Urea Nitrogen 26 mg/dl (7-17); Calcium 9.2 mg/dl (8.4-10.2); Carbon Dioxide 28 mmol/L (22-30); Chloride 108 mmol/L (98-107); Glucose 89 mg/dl (70-99); Potassium 4.2 mmol/L (3.5-5.1); Sodium 137 mmol/L (135-145); eGFR > 60.00
== END ==
LOC: OLABP 13:31
PROVIDERS: ATTENDING PHYSICIAN Family Medicine
DX: I10 Essential (primary) hypertension (principal); M62.81 Muscle weakness (generalized)
CPT/HCPCS: 36415; 80048

== ENCOUNTER 2023-04-02 00:40 | Emergency (ER) | payer MEDICARE, OTHER, SELFPAY ==
[2023-04-02 00:45] VITALS: BP 121/75
[2023-04-02 00:56] VITALS: BMI 27.5
--- NOTE | 2023-04-02 01:55 | ED.GENMED ---
History of Present Illness
General
Chief Complaint: Fall
Source: records
Exam Limitations: dementia
Time Seen by Provider: 04/02/23 00:50
Travel History
Have you had any contact with someone who has COVID-19?: No
Do you have any symptoms of coronavirus? Fever > 100 degrees, chills, cough, shortness of breath, sore throat, loss of taste or smell, muscle aches, or headache?: No
History of Present Illness
History of Present Illness:
Patient apparently slid out of bed landing on her knees. Found adjacent to her bed on her knees. Only complaining of some bilateral knee pain. On ER arrival complained of mild headache.
Past History
Past History
ED Past Medical History: HTN, Hypothyroidism and Other (Mild dementia, cataracts)
ED Past Surgical History: Other (Vein stripping, cataracts, left knee replacement)
Social History
Tobacco: Non-smoker
Alcohol: None
Drug: None
Personal:
Living: with family
Review of Systems
Review of Systems
All Other Systems: Not applicable
Respiratory: Reports no symptoms
Cardiac: Reports no symptoms
Phy Exam
Physical Exam
Physical Exam:
TRAUMA EXAM:
VITAL SIGNS: Vital signs reviewed, cooperative. Elderly and frail
DISTRESS: No active disease
EYES: Pupils reactive, no orbital trauma
NOSE: No deformity or epistaxis
FACE AND SCALP: No scalp or facial trauma, external canals no blood
NECK: Supple nontender
BACK: Back nontender, pelvis stable to compression
RESPIRATORY: No distress, breath sounds normal, no tender chest wall
CARDIAC: No murmur, pulses equal and strong
ABDOMEN: Soft nontender bowel sounds normal
SKIN: Skin intact no bleeding, color normal
EXTREMITIES: Mild tenderness left greater than right peripatellar area. Able to straight leg raise. No pain with hip rotation. Upper extremities unremarkable.
NEUROLOGICAL: Alert, oriented x 2, no motor deficits
PSYCH: Mood affect normal
Course
Orders/Labs/Results
Orders:
Orders
04/02/23 01:00
CT Head W/o Iv Contrast Urgent
Comment:
Reason For Exam: possible head injury
Knee, Left 4 or More Views [CR Knee - Left 4 Or More View*] Urgent
Comment:
Reason For Exam: trauma
Knee, Right 4 or More Views [CR Knee- Right 4 Or More View*] Urgent
Comment:
Reason For Exam: trauma
Pelvis, 1 or 2 Views CR [CR Pelvis - 1 Or 2 Views ] Urgent
Comment:
Reason For Exam: trauma
04/02/23 02:52
CT Pelvis W/o Iv Contrast Urgent
Reason For Exam: right hip pain
Acetaminophen [Tylenol] 650 mg PO NOW STA
Vital Signs
Initial and Last Documented VS:
Initial Vital Signs
Temp Pulse Resp BP Pulse Ox
97.8 F 92 15 121/75 96
04/02/23 00:45 04/02/23 00:45 04/02/23 00:45 04/02/23 00:45 04/02/23 00:45
Last Documented Vital Signs
Temp Pulse Resp BP Pulse Ox
97.8 F 92 16 119/57 98
04/02/23 00:45 04/02/23 06:12 04/02/23 06:12 04/02/23 06:12 04/02/23 06:12
MDM/Problems Addressed
Differential Diagnosis Includes:
Patient found next to her bed. No signs of any major trauma. Unlikely to be syncope. Appears stable and nontoxic at this time. CT scan because of unknown trauma and complaining of some headache. Knee x-rays bilaterally. No indication for labs
or other testing. Discussed with daughter.
*Radiology
Radiology exam reviewed: preliminary read by ED provider (No acute findings) and radiology read reviewed (Negative CT)
*Pulse Oximetry
Patient hypoxic: no
*Critical Care Note
Total Time (30-74mins, 75-104mins- exclusive of procedures): Not Applicable
Data Reviewed
Review of Other/Old Records Reveals: Labs, Records and Discharge Summary
Update Note
Update Note:
Patient complaining of hip pain that she was not complaining of earlier. X-ray reviewed I cannot appreciate an obvious fracture although with significant degenerative changes somewhat limited with x-ray view. For completeness a CT scan will be
ordered. If negative patient is stable for discharge to follow-up
ED Attending Note
-
Portions of this chart may have been created with voice recognition software.� Occasional wrong word or��sound alike� substitutions may have occurred due to the inherent limitations of voice recognition software.
Discharge Plan
Departure
Patient Disposition: Home (Routine Discharge)
Date of Disposition: 04/02/23
Time of Disposition: 05:01
Patient with high blood pressure during this ER visit?: Yes
Condition: Good
Covid-19: Not Applicable
Discharge Problem:
Fall, Bilateral knee contusions, Hip pain, Possible mild head injury
Instructions: Head Injury in Adults (DC), Contusion (DC), BLOOD PRESSURE
Prescriptions:
No Action
donepezil 10 mg Tablet
10 mg PO DAILY@2099
acetaminophen [Tylenol] 325 mg Tablet
650 mg PO Q6H MDD 3000 mg PRN (Reason: mild pain/fever>101)
acetaminophen [Tylenol Extra Strength] 500 mg Tablet
500 mg PO DAILY
levothyroxine 50 mcg Tablet
50 mcg PO DAILY@2099
loteprednol etabonate [Lotemax] 0.5 % Drops,Suspension
1 drp BOTH EYES BID@0900,2100
carboxymethylcellulose sodium [Refresh Plus] 0.5 % Dropperette
1 drp BOTH EYES QID@0900,13,17,21
cholecalciferol (vitamin D3) 25 mcg (1,000 unit) Tablet
50 mcg PO DAILY@0900
PreserVision AREDS-2 250-90-40-1 mg Capsule
1 cap PO BID@0900,2100
Osteo Bi-Flex
2 tab PO DAILY@0900
diclofenac sodium 1 % gel
1 applic topical QIDPRN PRN (Reason: osteoarthritis)
furosemide [Lasix] 20 mg tablet
20 mg PO DAILY PRN (Reason: edema) Qty: 30 0RF
cephalexin 500 mg capsule
500 mg PO BID Qty: 2 0RF
Rx Instructions:
for 03/26/23 (last day overall of antibiotics)
Referrals:
Supa Donald MD [Family Provider] - Follow up in 2-3 days
Activity Restrictions/Additional Instructions:
Recheck with increased or persistent hip pain
Interventions
Interventions:
*Risk Screen - Suicide Last Done: 04/02/23 00:45
*General Assessment Last Done: 04/02/23 00:45
*Neglect/Abuse Screening Last Done: 04/02/23 00:45
ED- Fall Risk Assessment Last Done: 04/02/23 05:20
*ED COVID-19 Vaccine History Last Done: 04/02/23 00:57
*Nursing Disposition Last Done: 04/02/23 05:20
ED-Musculoskeletal Assessment Last Done: 04/02/23 00:57
ED- Neurological Assessment Last Done: 04/02/23 00:57
ED-Skin Assessment Last Done: 04/02/23 00:57
Discharge Date and Time
Discharge Date/Time: 04/02/23 06:23
[2023-04-02] MEDS: TYLENOL 650 MG PO (03:50)
[2023-04-02 05:19] VITALS: BP 133/72
[2023-04-02 05:20] VITALS: BP 133/72
[2023-04-02 06:12] VITALS: BP 119/57
== END 2023-04-02 06:23 | disposition home or self-care (01) ==
LOC: EMR 00:40
PROVIDERS: EMERGENCY PHYSICIAN Emergency Medicine; FAMILY PHYSICIAN Family Medicine
DX: S80.01XA Contusion of right knee, initial encounter (principal); S80.02XA Contusion of left knee, initial encounter; W06.XXXA Fall from bed, initial encounter; I10 Essential (primary) hypertension; E03.9 Hypothyroidism, unspecified; F03.A0 Unspecified dementia, mild, without behavioral disturbance, psychotic disturbance, mood disturbance, and anxiety; Z96.652 Presence of left artificial knee joint
CPT/HCPCS: 99284; 70450; 72170; 72192; 73564

== ENCOUNTER → 2023-04-12 11:01 | Outpatient (REF) | payer MEDICARE, OTHER, SELFPAY | LOC: OLABP 11:01 | PROVIDERS: ATTENDING PHYSICIAN Family Medicine | DX: F03.90 Unspecified dementia, unspecified severity, without behavioral disturbance, psychotic disturbance, mood disturbance, and anxiety (principal); R26.2 Difficulty in walking, not elsewhere classified | CPT/HCPCS: 36415 ==

== ENCOUNTER → 2023-04-13 10:45 | Outpatient (REF) | payer MEDICARE, OTHER, SELFPAY ==
[2023-04-13 11:52] LABS: Blood Urea Nitrogen 26 mg/dl (7-17); Calcium 9.7 mg/dl (8.4-10.2); Carbon Dioxide 28 mmol/L (22-30); Chloride 109 mmol/L (98-107); Glucose 98 mg/dl (70-99); Potassium 4.2 mmol/L (3.5-5.1); Sodium 140 mmol/L (135-145); eGFR > 60.00
== END ==
LOC: OLABP 10:45
PROVIDERS: ATTENDING PHYSICIAN Family Medicine
DX: N39.0 Urinary tract infection, site not specified (principal); N17.9 Acute kidney failure, unspecified; N18.4 Chronic kidney disease, stage 4 (severe); I10 Essential (primary) hypertension
CPT/HCPCS: 36415; 80048

== ENCOUNTER → 2023-04-28 12:47 | Outpatient (REF) | payer MEDICARE, OTHER, SELFPAY ==
[2023-04-28 13:49] LABS: % Basophils 0.6 % (0-2); % Eosinophils 1.9 % (0-6); % Immature Granulocytes 0.2 % (0-0.5); % Lymphocytes 53.4 % (20.5-51.1); % Monocytes 10.5 % (1.7-9.3); % Neutrophils 33.4 % (42.2-75.2); Absolute Eosinophils 0.1 10^3/uL (0-0.7); Absolute Lymphocytes 2.5 10^3/uL (1.2-3.4); Absolute Monocytes 0.5 10^3/uL (0.1-0.6); Absolute Neutrophils 1.6 10^3/uL (1.4-6.5); Hemoglobin 9.2 g/dL (12.0-16.0); Mean Corp Hgb Conc. 32.9 g/dL (33.0-37.0); Mean Corpuscular Hgb 30.2 pg (27.0-31.0); Mean Corpuscular Volume 91.8 fL (81.0-99.0); Mean Platelet Volume 11.2 fL (7.4-10.4); Nucleated Red Blood Cells % 0 %; Platelet Count 174 10^3/uL (130-400); Red Blood Cell Count 3.05 10^6/uL (4.20-5.40); Red Cell Dist. Width 13.9 % (11.5-14.5); White Blood Cell Count 4.7 10^3/uL (4.8-10.8)
[2023-04-28 14:26] LABS: ALT (SGPT) 13 U/L (0-35); AST (SGOT) 18 U/L (14-36); Albumin 2.9 g/dl (3.5-5.0); Alkaline Phosphatase 85 U/L (38-126); Blood Urea Nitrogen 29 mg/dl (7-17); Calcium 9.3 mg/dl (8.4-10.2); Carbon Dioxide 30 mmol/L (22-30); Chloride 105 mmol/L (98-107); Glucose 87 mg/dl (70-99); Potassium 4.1 mmol/L (3.5-5.1); Sodium 139 mmol/L (135-145); Total Bilirubin 0.3 mg/dl (0.2-1.3); Total Protein 5.8 g/dl (6.3-8.2); eGFR > 60.00
[2023-04-28 15:05] LABS: Free T4 1.24 ng/dl (0.78-2.19)
[2023-04-28 15:19] LABS: TSH 3.17 uIU/ml (0.47-4.68)
[2023-04-29 01:20] LABS: Vitamin B12 322 pg/ml (239-931)
[2023-04-29 17:18] LABS: Syphilis/T. pallidum Ab Reflex Negative (Negative)
== END ==
LOC: OLABPG 12:47
PROVIDERS: ATTENDING PHYSICIAN Family Medicine
DX: F03.90 Unspecified dementia, unspecified severity, without behavioral disturbance, psychotic disturbance, mood disturbance, and anxiety (principal)
CPT/HCPCS: 36415; 80053; 82607; 84439; 84443; 85025; 86780

== ENCOUNTER 2023-05-09 13:46 | Emergency (ER) | payer MEDICARE, OTHER, SELFPAY ==
[2023-05-09 13:48] VITALS: BP 148/76; BMI 27.7
[2023-05-09 14:00] VITALS: BP 138/79
[2023-05-09 14:19] LABS: Urine Albumin Negative (Neg - Trace); Urine Bilirubin Negative (Negative); Urine Character Clear (Clear); Urine Color Yellow; Urine Glucose Negative (Negative); Urine Ketone Negative (Negative); Urine Leukocyte Negative (Negative); Urine Nitrite Negative (Negative); Urine Occult Blood Negative (Negative); Urine Specific Gravity 1.015 (<1.030); Urine Urobilinogen Negative (Neg - 1+)
[2023-05-09 14:20] LABS: % Basophils 0.3 % (0-2); % Eosinophils 1.6 % (0-6); % Immature Granulocytes 0.3 % (0-0.5); % Lymphocytes 56.7 % (20.5-51.1); % Neutrophils 32.1 % (42.2-75.2); Absolute Eosinophils 0.1 10^3/uL (0-0.7); Absolute Lymphocytes 3.5 10^3/uL (1.2-3.4); Absolute Monocytes 0.6 10^3/uL (0.1-0.6); Hematocrit 35.9 % (37.0-47.0); Hemoglobin 11.4 g/dL (12.0-16.0); Mean Corp Hgb Conc. 31.8 g/dL (33.0-37.0); Mean Corpuscular Hgb 29.6 pg (27.0-31.0); Mean Corpuscular Volume 93.2 fL (81.0-99.0); Mean Platelet Volume 10.8 fL (7.4-10.4); Nucleated Red Blood Cells % 0 %; Platelet Count 160 10^3/uL (130-400); Red Blood Cell Count 3.85 10^6/uL (4.20-5.40); Red Cell Dist. Width 13.8 % (11.5-14.5); White Blood Cell Count 6.2 10^3/uL (4.8-10.8)
[2023-05-09 14:33] LABS: ALT (SGPT) 12 U/L (0-35); AST (SGOT) 19 U/L (14-36); Albumin 3.8 g/dl (3.5-5.0); Alkaline Phosphatase 105 U/L (38-126); Blood Urea Nitrogen 36 mg/dl (7-17); Calcium 9.8 mg/dl (8.4-10.2); Carbon Dioxide 29 mmol/L (22-30); Chloride 102 mmol/L (98-107); Estimated Creatinine Clearance 36 ml/min; Glucose 96 mg/dl (70-99); Potassium 4.5 mmol/L (3.5-5.1); Sodium 137 mmol/L (135-145); Total Bilirubin 0.5 mg/dl (0.2-1.3); eGFR 43.81
[2023-05-09 15:00] VITALS: BP 127/70
[2023-05-09 15:51] VITALS: BP 144/63
[2023-05-09 16:00] VITALS: BP 124/66
--- NOTE | 2023-05-09 16:21 | ED.GENMED ---
History of Present Illness
General
Chief Complaint: Change in Mental Status
Source: patient and family
Exam Limitations: dementia
Time Seen by Provider: 05/09/23 14:17
Travel History
Have you had any contact with someone who has COVID-19?: Unable to Answer
Do you have any symptoms of coronavirus? Fever > 100 degrees, chills, cough, shortness of breath, sore throat, loss of taste or smell, muscle aches, or headache?: Unable to Answer
History of Present Illness
History of Present Illness:
87-year-old female presents after she had 2 episodes at [employer] where she was unresponsive. She did then become responsive with staff gave her stimulation. 1 event happened while at a table for lunch and then she went back to her apartment and
had a second event. Subsequently, she has been otherwise normal. Family at bedside states she is at baseline. Patient offers no complaint. She is denies current chest pain, shortness of breath or abdominal pain. No headache.
Past History
Past History
ED Past Medical History: HTN, Hypothyroidism and Other (Mild dementia, cataracts)
ED Past Surgical History: Other (Vein stripping, cataracts, left knee replacement)
Social History
Tobacco: Non-smoker
Alcohol: None
Drug: None
Personal:
Living: with family
Phy Exam
Physical Exam
Physical Exam:
CONSTITUTIONAL Patient alert and oriented to person. Well-appearing. Vital signs reviewed.
HEAD atraumatic, normocephalic.
EYES eyelids normal to inspection, Extraocular muscles intact, Conjunctiva normal, Sclera normal.
NECK normal range of motion, Trachea midline, no jugular venous distention.
RESPIRATORY CHEST No respiratory distress noted, Chest expansion equal, Bilateral breath sounds clear.
CARDIOVASCULAR regular rate and rhythm, Heart sounds normal.
ABDOMEN abdomen nontender, Bowel sounds normal. No distention.
BACK normal inspection, no obvious deformities
UPPER EXTREMITY range of motion normal, Motor strength normal, no cyanosis, no edema.
LOWER EXTREMITY range of motion normal, Motor strength normal, no cyanosis, no edema.
NEURO Speech normal, No focal motor deficits, Cranial Nerves intact to screening exam.
SKIN skin warm, dry, and normal in color.
Course
Orders/Labs/Results
Orders:
Orders
05/09/23 14:05
CMP [Comprehensive Metabolic Panel] Urgent
Complete Blood Count/With Diff Urgent
Urinalysis Reflex To Culture Urgent
Date Specimen was Collected: 05/09/23
Time Specimen was Collected: 14:03
05/09/23 14:34
Electrocardiogram (*1) Urgent
Reason for Study: Syncope
CT Head W/o Iv Contrast Urgent
Comment:
Reason For Exam: change in ms
EKG- Treatment ONCE
Abnormal Lab Results
05/09/23
14:05
RBC 3.85 L 10^6/uL
(4.20-5.40)
Hgb 11.4 L g/dL
(12.0-16.0)
Hct 35.9 L %
(37.0-47.0)
MCHC 31.8 L g/dL
(33.0-37.0)
MPV 10.8 H fL
(7.4-10.4)
Absolute Lymphs (auto) 3.5 H 10^3/uL
(1.2-3.4)
Neutrophils % 32.1 L %
(42.2-75.2)
Lymphocytes % 56.7 H %
(20.5-51.1)
BUN 36 H mg/dl
(7-17)
Creatinine 1.2 H mg/dL
(0.6-1.0)
05/09/23 14:05
05/09/23 14:05
Vital Signs
Initial and Last Documented VS:
Initial Vital Signs
Temp Pulse Resp BP Pulse Ox
97.5 F 66 16 148/76 96
05/09/23 13:48 05/09/23 13:48 05/09/23 13:48 05/09/23 13:48 05/09/23 13:48
Last Documented Vital Signs
Temp Pulse Resp BP Pulse Ox
97.5 F 61 10 124/66 96
05/09/23 13:48 05/09/23 16:00 05/09/23 16:00 05/09/23 16:00 05/09/23 16:00
MDM/Problems Addressed
MDM/Problems Addressed:
Change in mental status resolved, chronic dementia
*Radiology
Radiology exam reviewed: preliminary read by ED provider (no obvious ICH) and radiology read reviewed
*Pulse Oximetry
Patient hypoxic: no
*EKG
Interpreted by ED Provider?: Yes
Interpretation: abnormal
Rate: bradycardiac
Rhythm: sinus
QRS Pattern: right bundle branch block
Ischemia: no ischemia
*[employer] Interpretation
Rate: normal
Interpretation: normal
Rhythm: sinus
*Critical Care Note
Total Time (30-74mins, 75-104mins- exclusive of procedures): Not Applicable
Data Reviewed
Source: patient and family
Further Testing Considered But Not Given:
Consider cultures but afebrile
Patient Management
Escalation/DeEscalation of care consider admission/obs:
Patient appears well. Happy and smiley. No complaints. Unclear etiology. Okay for discharge
ED Attending Note
-
Portions of this chart may have been created with voice recognition software.� Occasional wrong word or��sound alike� substitutions may have occurred due to the inherent limitations of voice recognition software.
Discharge Plan
Departure
Patient Disposition: Home (Routine Discharge)
Date of Disposition: 05/09/23
Time of Disposition: 16:26
Patient with high blood pressure during this ER visit?: No
Discharge Problem:
Acute alteration in mental status
Instructions: Altered Mental Status (DC)
Prescriptions:
No Action
donepezil 10 mg Tablet
10 mg PO HS
acetaminophen [Tylenol] 325 mg Tablet
650 mg PO Q4HPRN PRN (Reason: mild pain/fever>101)
levothyroxine 50 mcg Tablet
50 mcg PO DAILY@2100
loteprednol etabonate [Lotemax] 0.5 % Drops,Suspension
1 drp BOTH EYES BID
carboxymethylcellulose sodium [Refresh Plus] 0.5 % Dropperette
1 drp BOTH EYES QID
cholecalciferol (vitamin D3) 25 mcg (1,000 unit) Tablet
50 mcg PO DAILY
diclofenac sodium [Voltaren] 1 % Gel
0 g TOPICAL DAILY Qty: 0
PreserVision AREDS-2 250-90-40-1 mg Capsule
1 cap PO BID
magnesium hydroxide [Milk of Magnesia] 400 mg/5 mL Suspension
2,400 mg PO [id number] PRN (Reason: give on day 4 if no bm on 3rd day)
furosemide [Lasix] 20 mg tablet
20 mg PO Q48H
Referrals:
Supa Donald MD [Family Provider] -
Activity Restrictions/Additional Instructions:
Return immediately for chest pain, shortness of breath, fevers, changes in mentation, weakness of any kind or any other concerns.
Interventions
Interventions:
*Risk Screen - Suicide Last Done: 05/09/23 13:48
*General Assessment Last Done: 05/09/23 13:48
*Neglect/Abuse Screening Last Done: 05/09/23 13:48
ED- Fall Risk Assessment Last Done: 05/09/23 14:00
*ED COVID-19 Vaccine History Last Done: 05/09/23 13:48
ED- Pulmonary Assessment Last Done: 05/09/23 14:00
ED- Neurological Assessment Last Done: 05/09/23 14:00
ED- Cardiac Assessment Last Done: 05/09/23 14:00
[2023-05-09 17:00] VITALS: BP 129/66
== END 2023-05-09 18:01 | disposition home or self-care (01) ==
LOC: EMR 13:46
PROVIDERS: EMERGENCY PHYSICIAN Emergency Medicine; FAMILY PHYSICIAN Family Medicine
DX: R41.82 Altered mental status, unspecified (principal)
CPT/HCPCS: 99285; 70450; 80053; 81003; 85025; 93005

== ENCOUNTER → 2023-09-06 12:20 | Outpatient (REF) | payer MEDICARE, OTHER, SELFPAY ==
[2023-09-06 15:08] LABS: ALT (SGPT) 10 U/L (0-35); AST (SGOT) 20 U/L (14-36); Albumin 3.6 g/dl (3.5-5.0); Alkaline Phosphatase 85 U/L (38-126); Blood Urea Nitrogen 31 mg/dl (7-17); Calcium 9.5 mg/dl (8.4-10.2); Carbon Dioxide 26 mmol/L (22-30); Chloride 106 mmol/L (98-107); Glucose 81 mg/dl (70-99); Potassium 4.7 mmol/L (3.5-5.1); Sodium 137 mmol/L (135-145); Total Bilirubin 0.6 mg/dl (0.2-1.3); Total Protein 6.1 g/dl (6.3-8.2); eGFR > 60.00
[2023-09-06 15:26] LABS: Vitamin D, 25-OH*** 52.3 ng/mL (30-80)
[2023-09-06 15:31] LABS: Hematocrit 30.3 % (37.0-47.0); Hemoglobin 10.1 g/dL (12.0-16.0); Mean Corp Hgb Conc. 33.3 g/dL (33.0-37.0); Mean Corpuscular Hgb 29.2 pg (27.0-31.0); Mean Corpuscular Volume 87.6 fL (81.0-99.0); Mean Platelet Volume 11.8 fL (7.4-10.4); Platelet Count 160 10^3/uL (130-400); Red Blood Cell Count 3.46 10^6/uL (4.20-5.40); Red Cell Dist. Width 13.8 % (11.5-14.5); White Blood Cell Count 5.3 10^3/uL (4.8-10.8)
[2023-09-06 15:40] LABS: TSH Reflex To Free T4 3.43 uIU/ml (0.47-4.68)
[2023-09-06 15:56] LABS: % Basophils 0.6 % (0-2); % Eosinophils 1.7 % (0-6); % Immature Granulocytes 0.6 % (0-0.5); % Monocytes 8.7 % (1.7-9.3); % Neutrophils 29.4 % (42.2-75.2); Absolute Eosinophils 0.1 10^3/uL (0-0.7); Absolute Lymphocytes 3.1 10^3/uL (1.2-3.4); Absolute Monocytes 0.5 10^3/uL (0.1-0.6); Absolute Neutrophils 1.6 10^3/uL (1.4-6.5); Nucleated Red Blood Cells % 0 %
== END ==
LOC: OLABPG 12:20
PROVIDERS: ATTENDING PHYSICIAN Internal Medicine
DX: F03.90 Unspecified dementia, unspecified severity, without behavioral disturbance, psychotic disturbance, mood disturbance, and anxiety (principal); E55.9 Vitamin D deficiency, unspecified; E03.9 Hypothyroidism, unspecified; Z13.1 Encounter for screening for diabetes mellitus; Z13.0 Encounter for screening for diseases of the blood and blood-forming organs and certain disorders involving the immune mechanism
CPT/HCPCS: 36415; 80053; 82306; 84443; 85025

== ENCOUNTER → 2023-10-20 11:58 | Outpatient (REF) | payer MEDICARE, OTHER, SELFPAY ==
[2023-10-20 12:38] LABS: Hematocrit 31.5 % (37.0-47.0); Hemoglobin 10.4 g/dL (12.0-16.0); Mean Corpuscular Hgb 29.6 pg (27.0-31.0); Mean Corpuscular Volume 89.7 fL (81.0-99.0); Mean Platelet Volume 10.5 fL (7.4-10.4); Platelet Count 213 10^3/uL (130-400); Red Blood Cell Count 3.51 10^6/uL (4.20-5.40); Red Cell Dist. Width 12.8 % (11.5-14.5); White Blood Cell Count 5.7 10^3/uL (4.8-10.8)
[2023-10-20 12:49] LABS: ALT (SGPT) 37 U/L (0-35); AST (SGOT) 35 U/L (14-36); Albumin 3.2 g/dl (3.5-5.0); Alkaline Phosphatase 114 U/L (38-126); Blood Urea Nitrogen 37 mg/dl (7-17); Calcium 9.7 mg/dl (8.4-10.2); Carbon Dioxide 30 mmol/L (22-30); Chloride 104 mmol/L (98-107); Glucose 89 mg/dl (70-99); Potassium 4.2 mmol/L (3.5-5.1); Sodium 142 mmol/L (135-145); Total Bilirubin 0.4 mg/dl (0.2-1.3); eGFR > 60.00
== END ==
LOC: OLABPG 11:58
PROVIDERS: ATTENDING PHYSICIAN Internal Medicine
DX: N95.0 Postmenopausal bleeding (principal); R63.8 Other symptoms and signs concerning food and fluid intake
CPT/HCPCS: 36415; 80053; 85027

== ENCOUNTER → 2023-10-21 10:58 | Outpatient (REF) | payer MEDICARE, OTHER, SELFPAY ==
[2023-10-21 11:41] LABS: Urine Albumin Trace (Neg - Trace); Urine Bilirubin Negative (Negative); Urine Character Clear (Clear); Urine Color Yellow; Urine Glucose Negative (Negative); Urine Ketone Negative (Negative); Urine Leukocyte 2+ (Negative); Urine Nitrite Negative (Negative); Urine Occult Blood Negative (Negative); Urine Urobilinogen Negative (Neg - 1+)
[2023-10-21 11:50] LABS: Urine Bacteria Many (Negative); Urine Red Blood Cell 0-2 /HPF (0-2); Urine Squamous Cell >30 /LPF (Few); Urine Triple Phosphate Crystal Present
== END ==
LOC: OLABPG 10:58
PROVIDERS: ATTENDING PHYSICIAN Internal Medicine
DX: N39.0 Urinary tract infection, site not specified (principal)
CPT/HCPCS: 36415; 81003; 81015; 87086

== ENCOUNTER → 2023-10-26 18:55 | Outpatient (REF) | payer MEDICARE, OTHER, SELFPAY ==
[2023-10-26 19:30] LABS: Urine Albumin Negative (Neg - Trace); Urine Bilirubin Negative (Negative); Urine Character Slightly Cloudy (Clear); Urine Color Yellow; Urine Glucose Negative (Negative); Urine Ketone Negative (Negative); Urine Leukocyte 1+ (Negative); Urine Nitrite Negative (Negative); Urine Occult Blood Negative (Negative); Urine Specific Gravity 1.015 (<1.030); Urine Urobilinogen Negative (Neg - 1+)
[2023-10-26 19:54] LABS: Urine Squamous Cell >30 /LPF (Few)
[2023-10-26 19:55] LABS: Urine Bacteria Many (Negative); Urine Red Blood Cell 0-2 /HPF (0-2); Urine White Cell 50-60 /HPF (0-5)
== END ==
LOC: OLABPG 18:55
PROVIDERS: ATTENDING PHYSICIAN Internal Medicine
DX: F03.90 Unspecified dementia, unspecified severity, without behavioral disturbance, psychotic disturbance, mood disturbance, and anxiety (principal)
CPT/HCPCS: 81003; 81015; 87077; 87086; 87186

== ENCOUNTER → 2023-10-27 11:09 | Outpatient (REF) | payer MEDICARE, OTHER, SELFPAY ==
[2023-10-27 12:22] LABS: ALT (SGPT) 16 U/L (0-35); AST (SGOT) 18 U/L (14-36); Albumin 3.2 g/dl (3.5-5.0); Alkaline Phosphatase 94 U/L (38-126); Blood Urea Nitrogen 28 mg/dl (7-17); Calcium 9.4 mg/dl (8.4-10.2); Carbon Dioxide 28 mmol/L (22-30); Chloride 104 mmol/L (98-107); Glucose 87 mg/dl (70-99); Iron 48 ug/dl (37-170); Potassium 4.4 mmol/L (3.5-5.1); Sodium 140 mmol/L (135-145); Total Bilirubin 0.3 mg/dl (0.2-1.3); Total Protein 5.8 g/dl (6.3-8.2); eGFR > 60.00
[2023-10-27 12:28] LABS: Hematocrit 30.3 % (37.0-47.0); Hemoglobin 10.2 g/dL (12.0-16.0); Mean Corp Hgb Conc. 33.7 g/dL (33.0-37.0); Mean Corpuscular Hgb 30.7 pg (27.0-31.0); Mean Corpuscular Volume 91.3 fL (81.0-99.0); Mean Platelet Volume 10.6 fL (7.4-10.4); Platelet Count 196 10^3/uL (130-400); Red Blood Cell Count 3.32 10^6/uL (4.20-5.40); Red Cell Dist. Width 12.5 % (11.5-14.5)
[2023-10-27 12:31] LABS: Percent Saturation 22 % (20-50); Total Iron Binding Capacity 209 ug/dl (265-497)
[2023-10-27 12:52] LABS: TSH 3.66 uIU/ml (0.47-4.68)
[2023-10-27 13:50] LABS: % Basophils 0.4 % (0-2); % Eosinophils 2.2 % (0-6); % Immature Granulocytes 0.2 % (0-0.5); % Lymphocytes 54.4 % (20.5-51.1); % Monocytes 10.4 % (1.7-9.3); % Neutrophils 32.4 % (42.2-75.2); Absolute Eosinophils 0.1 10^3/uL (0-0.7); Absolute Lymphocytes 2.7 10^3/uL (1.2-3.4); Absolute Monocytes 0.5 10^3/uL (0.1-0.6); Absolute Neutrophils 1.6 10^3/uL (1.4-6.5); Nucleated Red Blood Cells % 0 %
== END ==
LOC: OLABPG 11:09
PROVIDERS: ATTENDING PHYSICIAN Internal Medicine
DX: F03.90 Unspecified dementia, unspecified severity, without behavioral disturbance, psychotic disturbance, mood disturbance, and anxiety (principal); E03.9 Hypothyroidism, unspecified; N18.4 Chronic kidney disease, stage 4 (severe)
CPT/HCPCS: 36415; 80053; 83540; 83550; 84439; 84443; 85025

== ENCOUNTER → 2023-12-11 18:18 | Outpatient (REF) | payer MEDICARE, OTHER, SELFPAY ==
[2023-12-11 20:20] LABS: Urine Albumin Negative (Neg - Trace); Urine Bilirubin Negative (Negative); Urine Character Clear (Clear); Urine Color Yellow; Urine Glucose Negative (Negative); Urine Ketone Negative (Negative); Urine Leukocyte Negative (Negative); Urine Nitrite Positive (Negative); Urine Occult Blood Negative (Negative); Urine Urobilinogen Negative (Neg - 1+)
[2023-12-11 20:26] LABS: Urine Bacteria Moderate (Negative); Urine Red Blood Cell 0-2 /HPF (0-2); Urine Squamous Cell >30 /LPF (Few)
== END ==
LOC: OLABPG 18:18
PROVIDERS: ATTENDING PHYSICIAN Internal Medicine Cardiovascular Disease
DX: F03.90 Unspecified dementia, unspecified severity, without behavioral disturbance, psychotic disturbance, mood disturbance, and anxiety (principal); N39.0 Urinary tract infection, site not specified
CPT/HCPCS: 81003; 81015; 87077; 87086

== ENCOUNTER → 2024-08-14 11:14 | Outpatient (REF) | payer MEDICARE, OTHER, SELFPAY ==
[2024-08-14 12:58] LABS: TSH Reflex To Free T4 6.94 uIU/ml (0.47-4.68)
[2024-08-14 14:48] LABS: Free T4 1.35 ng/dl (0.78-2.19)
== END ==
LOC: OLABPG 11:14
PROVIDERS: ATTENDING PHYSICIAN Nurse Practitioner Gerontology; FAMILY PHYSICIAN Internal Medicine
DX: E03.9 Hypothyroidism, unspecified (principal); F03.90 Unspecified dementia, unspecified severity, without behavioral disturbance, psychotic disturbance, mood disturbance, and anxiety
CPT/HCPCS: 36415; 84439; 84443

== ENCOUNTER → 2024-10-02 10:02 | Outpatient (REF) | payer MEDICARE, OTHER, SELFPAY ==
[2024-10-02 11:34] LABS: TSH 2.07 uIU/ml (0.47-4.68)
== END ==
LOC: OLABPG 10:02
PROVIDERS: ATTENDING PHYSICIAN Nurse Practitioner Gerontology
DX: F03.90 Unspecified dementia, unspecified severity, without behavioral disturbance, psychotic disturbance, mood disturbance, and anxiety (principal); I10 Essential (primary) hypertension
CPT/HCPCS: 36415; 84439; 84443

== ENCOUNTER → 2024-10-25 11:50 | Outpatient (REF) | payer MEDICARE, OTHER, SELFPAY ==
[2024-10-25 14:04] LABS: TSH 4.48 uIU/ml (0.47-4.68)
== END ==
LOC: OLABPG 11:50
PROVIDERS: ATTENDING PHYSICIAN Nurse Practitioner Gerontology
DX: F03.90 Unspecified dementia, unspecified severity, without behavioral disturbance, psychotic disturbance, mood disturbance, and anxiety (principal); E03.9 Hypothyroidism, unspecified
CPT/HCPCS: 36415; 84439; 84443

== ENCOUNTER 2024-12-16 10:18 | Emergency (ER) | payer MEDICARE, OTHER, SELFPAY ==
[2024-12-16 10:18] VITALS: BP 146/78
--- NOTE | 2024-12-16 10:50 | ED.GENMED ---
History of Present Illness
General
Chief Complaint: Fall
Source: patient
Exam Limitations: none
Time Seen by Provider: 12/16/24 10:43
Nursing documentation reviewed up to this point in time: agreed with
History of Present Illness
History of Present Illness:
89-year-old female with a past medical history as noted significant for dementia who presents to the emergency room from [facility] via EMS for evaluation after fall out of bed. Patient is a very limited historian due to her dementia.
Her daughter is at bedside and helps with some collateral history. Patient has apparently been on antibiotics for a few days for a UTI. Daughter says that when she has UTIs she tends to be more restless at night and has a history of falls out of
bed. It sounds like a few nights ago she had a roll out of bed and hit the left side of her head and sustained a bruise. It sounds like this morning they again found her on the side of the bed and given multiple falls ultimately was sent to the ER
to be assessed. She is apparently at her mental baseline. When I speak to the patient she offers no complaints denies being in any pain. Review of her medication list shows no blood thinners.
Past History
Past History
ED Past Medical History: HTN, Hypothyroidism and Other (Mild dementia, cataracts)
ED Past Surgical History: Other (Vein stripping, cataracts, left knee replacement)
Social History
Tobacco: Non-smoker
Alcohol: None
Drug: None
Personal:
Living: with family
Review of Systems
Review of Systems
Unable to obtain full review of systems at this time due to: dementia
All Other Systems: Not applicable
Phy Exam
Physical Exam
Physical Exam:
General: Awake, alert, oriented x2; no acute distress
Head: Normocephalic, patient has old appearing bruise to the left forehead
Eyes: Conjunctiva normal, EOMI, pupils equal round reactive to light bilaterally
Throat: Airway intact, handling secretions
Neck: Trachea midline, cervical collar in place, no midline C-spine tenderness
Lungs: Breathing comfortable with no distress, no tachypnea or hypoxia
Heart: Regular rate, no chest wall tenderness
Abd: Soft, non distended, nontender
Back: No bruising or other signs of trauma the back or flank and no tenderness in the thoracic or lumbar spine
Neuro: Moving all extremities equally without gross focal deficit
Skin: Old bruise to the forehead but no lacerations or abrasions noted
Extremities: No deformity to extremities, no tenderness in the upper or lower extremities; she has arthritis in the knees which limits her active range of motion somewhat (she is wheelchair-bound), but no significant pain on passive range of motion
of the hips or knees
Scores
Heart Failure Risk
Heart Failure Risk Score: Not Applicable
Heart Score for Chest Pain Patients
STEMI patient?: Not applicable
Withdrawal Assessment of Alcohol
Withdrawal Assessment Completed?: Not applicable
Course
Orders/Labs/Results
Orders:
Orders
12/16/24 10:44
CT Head W/o Iv Contrast Urgent
Comment:
Reason For Exam: unwitnessed fall
12/16/24 10:49
CT Cervical Spine W/o Iv Contr Urgent
Comment:
Reason For Exam: unwitnessed fall with headstrike
Vital Signs
Initial and Last Documented VS:
Initial Vital Signs
Temp Pulse Resp BP Pulse Ox
36.9 C 86 20 146/78 95
12/16/24 10:18 12/16/24 10:18 12/16/24 10:18 12/16/24 10:18 12/16/24 10:18
Last Documented Vital Signs
Temp Pulse Resp BP Pulse Ox
36.9 C 86 20 146/78 95
12/16/24 10:18 12/16/24 10:18 12/16/24 10:18 12/16/24 10:18 12/16/24 10:55
MDM/Problems Addressed
Differential Diagnosis Includes:
Patient sent in after unwitnessed fall�she has old bruise on her forehead but no other signs of acute trauma; must rule out traumatic head injury and cervical spine injury given her age
MDM/Problems Addressed:
89-year-old female presents after unwitnessed fall x 2 in the setting of recent treatment for UTI. She is at her baseline mentation per daughter. Not on blood thinners. Vitals and exam as above. Will plan to check CT of the head and cervical
spine. Reassess after the above.
CT of the head and cervical spine negative for any acute posttraumatic pathology. Patient clinically stable on reassessment. [facility]. Daughter comfortable with this plan. All questions answered.
Chronic conditions affecting care:
Dementia
*Radiology
Radiology exam reviewed: radiology read reviewed
*Pulse Oximetry
SaO2: 95
Oxygen Mode of Delivery: Room air
Patient hypoxic: no (95%)
*Critical Care Note
Total Time (30-74mins, 75-104mins- exclusive of procedures): Not Applicable
Data Reviewed
Source: patient, records, family and ambulance crew
ED Attending Note
-
Portions of this chart may have been created with voice recognition software.� Occasional wrong word or��sound alike� substitutions may have occurred due to the inherent limitations of voice recognition software.
Discharge Plan
Departure
Patient Disposition: Home (Routine Discharge)
Date of Disposition: 12/16/24
Time of Disposition: 12:16
Patient with high blood pressure during this ER visit?: Yes
Discharge Problem:
Forehead contusion, Fall
Instructions: Contusion (DC)
Prescriptions:
No Action
donepezil 10 mg Tablet
10 mg PO HS
acetaminophen [Tylenol] 325 mg Tablet
650 mg PO Q4HPRN PRN (Reason: mild pain/fever>101)
levothyroxine 50 mcg Tablet
50 mcg PO DAILY@2100
loteprednol etabonate [Lotemax] 0.5 % Drops,Suspension
1 drp BOTH EYES BID
carboxymethylcellulose sodium [Refresh Plus] 0.5 % Dropperette
1 drp BOTH EYES QID
cholecalciferol (vitamin D3) 25 mcg (1,000 unit) Tablet
50 mcg PO DAILY
diclofenac sodium [Voltaren] 1 % Gel
0 g TOPICAL DAILY Qty: 0
PreserVision AREDS-2 250-90-40-1 mg Capsule
1 cap PO BID
magnesium hydroxide [Milk of Magnesia] 400 mg/5 mL Suspension
2,400 mg PO [id number] PRN (Reason: give on day 4 if no bm on 3rd day)
furosemide [Lasix] 20 mg tablet
20 mg PO Q48H
Referrals:
Wilbert Nguyen Sr., MD [Family Provider, Family Practice] - Call in 1-3 days for appt
Activity Restrictions/Additional Instructions:
Thank you for visiting the Emergency Department at [facility].
1. Please schedule a follow up appointment as directed. Call first thing tomorrow morning to make an appointment.
2. If indicated, please take your medications as instructed and indicated on discharge paperwork.
3. If any of your symptoms do not improve, or persist, or become more severe within 6-12 hours, please return to the emergency department for further care.
4. Please return to the emergency department if you develop a headache, neck pain/stiffness, fever greater than 100.4F, chest pain, shortness of breath, persistent nausea, vomiting, slurred speech, difficulty walking, numbness/tingling, weakness,
signs of infection or any other symptoms that are worrisome to you.
Please call [phone] if you have any questions.
Interventions
Interventions:
*Risk Screen - Suicide Last Done: 12/16/24 10:18
*General Assessment Last Done: 12/16/24 10:18
*Neglect/Abuse Screening Last Done: 12/16/24 10:18
Discharge Date and Time
Print Language: THAI
[2024-12-16 12:00] VITALS: BP 138/79
[2024-12-16 14:35] VITALS: BP 133/84
== END 2024-12-16 15:25 | disposition home or self-care (01) ==
LOC: EMR 10:18
PROVIDERS: EMERGENCY PHYSICIAN Emergency Medicine; FAMILY PHYSICIAN Family Medicine
DX: S00.83XA Contusion of other part of head, initial encounter (principal); W06.XXXA Fall from bed, initial encounter; Y92.89 Other specified places as the place of occurrence of the external cause; N39.0 Urinary tract infection, site not specified; I10 Essential (primary) hypertension; E03.9 Hypothyroidism, unspecified; G30.9 Alzheimer's disease, unspecified; F02.80 Dementia in other diseases classified elsewhere, unspecified severity, without behavioral disturbance, psychotic disturbance, mood disturbance, and anxiety; M19.90 Unspecified osteoarthritis, unspecified site; Z96.652 Presence of left artificial knee joint; R29.6 Repeated falls
CPT/HCPCS: 99284; 70450; 72125